=== PATIENT | male | born 2000 | race African-American/Black ===

== ENCOUNTER 2023-05-02 18:35 | Emergency (ER) | payer MEDICAID ==
[~2023-05-02] VITALS: Ht 190.5 cm; Wt 98.0 kg
[2023-05-02 18:40] VITALS: BP 123/77; PULSE 72; RESP 18; TEMP 98.3; O2SAT 99
[2023-05-02] MEDS ORDERED: LIDOCAINE HCL/EPINEPHRINE 1%-EPI 1:100,000 20 ML VIAL INFIL ONE (19:30)
[2023-05-02] MEDS ORDERED: BACITRACIN ZINC OINT UDPKT TOP ONE (19:30)
== END 2023-05-04 10:28 | disposition left against medical advice (07) ==
LOC: ER 18:35
DX: S02.85XA Fracture of orbit, unspecified, initial encounter for closed fracture (principal); S01.91XA Laceration without foreign body of unspecified part of head, initial encounter; R51.9 Headache, unspecified; V29.99XA Rider (driver) (passenger) of other motorcycle injured in unspecified traffic accident, initial encounter; Y93.89 Activity, other specified; Y92.89 Other specified places as the place of occurrence of the external cause; Y99.8 Other external cause status
CPT/HCPCS: 70450; 70486; 99284; J3490; Z7610 ×2